=== PATIENT | female | born 1955 | race Caucasian/White ===

== ENCOUNTER 2017-07-19 15:32 | Observation (INO) | payer OTHER ==
[~2017-07-19] VITALS: Ht 165.1 cm; Wt 81.3 kg
[~2017-07-19 15:32] MED LIST: ASPIR-LOW81 MG PO; CARDIZEM CD,CA180 MG PO; CORGARD20 MG PO; Corgard PO; Ecotrin PO; FLEXERIL10 MG PO; MYRBETRIQ50 MG PO; NADOLOL20 MG; NEURONTIN100 MG PO; OMEPRAZOLE40 M1 PO; PREDNISONE10 MG PO; SERTRALINE HCL25 MG PO; SERTRALINE HCL50 MG; ULTRAM50 MG PO; ZOLOFT25 MG PO; Zoloft PO
[2017-07-19 16:22] LABS: HEMATOCRIT 40.8 % (36.0-46.0); MCH 30.6 PG (29.0-34.0); MCHC 34.1 G/DL (30.0-36.0); MCV 89.9 FL (83-99); PLATELET COUNT 205 K/uL (156-360); RBC DIS.WIDTH-CV 13.9 % (11.8-14.6); RBC DIS.WIDTH-SD 45.7 % (39-53); RED BLOOD COUNT 4.54 M/uL (3.80-5.20); WHITE BLOOD COUNT 6.7 K/uL (4.1-10.2)
[2017-07-19 16:29] LABS: CHLORIDE 111 mEq/L (99-109); POTASSIUM 4.1 mEq/L (3.7-5.4); SODIUM 137 mEq/L (136-147)
[2017-07-19 16:31] LABS: GLUCOSE 108 mg/dL (70-99)
[2017-07-19 16:32] LABS: ANION GAP 6 MEQ/L (2-14)
[2017-07-19 16:35] LABS: GFR ESTIMATE (CALCULATED) > 59 mL/min/
[2017-07-19 16:36] LABS: UREA NITROGEN (BUN) 16 mg/dL (9-23)
[2017-07-19 16:41] LABS: TROP-I INTERPRETATION NEGATIVE; TROPONIN-I < 0.01 ng/mL (0.0-0.30)
[2017-07-19 18:22] LABS: MAGNESIUM 2.1 mg/dl (1.3-2.7)
[2017-07-19] MEDS ORDERED: TOVIAZ4 MG PO (18:47)
[2017-07-19] MEDS ORDERED: CARDIZEM CD,CA180 MG PO (19:19)
[2017-07-19] MEDS ORDERED: BACTRIM,SEPT1 TABLE1 PO (19:21)
[2017-07-19] MEDS ORDERED: VALACYCLOVIR500 MG PO (19:29)
[2017-07-19] MEDS ORDERED: GABAPENTIN100 MG PO (19:30)
[2017-07-19 20:32] VITALS: BP 137/73
[2017-07-19 22:21] LABS: TROP-I INTERPRETATION NEGATIVE; TROPONIN-I < 0.01 ng/mL (0.0-0.30)
[2017-07-19 22:57] VITALS: BP 105/72
[2017-07-20 00:03] VITALS: BP 100/67
[2017-07-20 03:41] VITALS: BP 93/62
[2017-07-20 04:24] LABS: TROP-I INTERPRETATION NEGATIVE; TROPONIN-I < 0.01 ng/mL (0.0-0.30)
[2017-07-20 05:35] LABS: HDL CHOLESTEROL 40 MG/DL (Desirable>=50); LDL CHOLESTEROL 79 mg/dL (Desirable<100); NON-HDL CHOLESTEROL 150 mg/dL (Desirable<160); TOTAL CHOLESTEROL 190 mg/dL (Desirable<200); TRIGLYCERIDES 355 MG/DL (Normal: <150)
[2017-07-20] MEDS ORDERED: PROTONIX40 MG PO (12:10)
[2017-07-20 12:22] VITALS: BP 115/71
== END 2017-07-20 12:55 | disposition home or self-care (01) ==
LOC: EME 15:32 → EDOF 19:12 → 5WEST 19:12 → ENRESERV 19:13 → 5WEST 20:08
PROVIDERS: Physician Assistant Medical
DX: R07.89 Other chest pain (principal); I48.0 Paroxysmal atrial fibrillation; M54.6 Pain in thoracic spine; R94.31 Abnormal electrocardiogram [ECG] [EKG]; Z82.49 Family history of ischemic heart disease and other diseases of the circulatory system; J45.909 Unspecified asthma, uncomplicated; K21.9 Gastro-esophageal reflux disease without esophagitis; N32.81 Overactive bladder; Z87.440 Personal history of urinary (tract) infections; Z90.710 Acquired absence of both cervix and uterus
CPT/HCPCS: 71020; 80048; 80061; 83735; 84484; 85027; 93005; 99281; 99285; G0378; J1650